=== PATIENT | female | born 1945 | race Caucasian/White ===

== ENCOUNTER → 2016-08-14 15:57 | Outpatient (CLI) | payer MEDICARE, OTHER ==
[2014-02-18 11:43] VITALS: BMI 26.9
[~2016-08-14 15:57] MED LIST: ATIVAN0.5 MG PO; BUMEX 1 MG TAB1 MG PO; HYDROCODONE-APA1 TAB PO; IRON PO; LITE COAT ASPI325 MG PO; NEURONTIN 300300 MG PO; PREVACID30 MG PO; ZETIA10 MG PO; ZOLOFT100 MG PO; ZYRTEC10 MG PO
== END | disposition home or self-care (01) ==
LOC: D.MAMMO 08:30
DX: N64.4 Mastodynia (principal)

== ENCOUNTER → 2017-02-17 09:32 | Outpatient (CLI) | payer MEDICARE, OTHER ==
[2014-02-18 11:43] VITALS: BMI 26.9
[~2017-02-17 09:32] MED LIST changes: +MUCINEX DM ER1 EAC1 PO; +SINGULAIR10 MG PO
== END | disposition home or self-care (01) ==
LOC: D.RT 09:32
DX: J44.9 Chronic obstructive pulmonary disease, unspecified (principal)

== ENCOUNTER 2017-05-01 15:06 | Inpatient (IN) | payer MEDICARE, OTHER ==
[2017-05-01] VITALS: BP 127/70
[~2017-05-01] VITALS: Ht 160 cm; Wt 77.8 kg
--- NOTE | ~2017-05-01 | CN ---
PATIENT NAME:MELA SCHULER MEDICAL RECORD: [id number] : 49 LOCATION:[id number] ADMIT DATE: 05/01/17 ACCOUNT: [id number] CONSULTING PHYSICIAN: BASILIO LEONARD MD REFERRING PHYSICIAN: SEDRICK ADAMSON MD DATE OF CONSULTATION: 05/01/2017 DIAGNOSES: 1. Atrial fibrillation with rapid ventricular response. 2. Shortness of breath, dyspnea on exertion. 3. Pneumonia. 4. Valvular heart disease, aortic valve replacement, mitral regurgitation. 5. Pulmonary hypertension. 6. Chronic obstructive pulmonary disease. 7. Systemic hypertension. HISTORY OF PRESENT ILLNESS: Mrs. Schuler presents with shortness of breath, dyspnea on exertion, found to have pneumonia. She is well, found to have a heart rate of 155. She does not have a history of atrial fibrillation. She does have COPD. She has history of hypertension for which she is on losartan. She is in atrial fibrillation with rapid response. PHYSICAL EXAMINATION: GENERAL APPEARANCE: Well-nourished, well-developed, appears stated age. Level of distress, comfortable. PSYCHIATRIC: Mental status, alert, normal affect. Orientation, oriented to time, place and person. EYES: Lids and conjunctiva, noninjected. No discharge, no pallor. ENT: Lips, teeth, gums, normal dentition. Oropharynx, no cyanosis, no pallor. NECK: Carotid arteries, bilateral normal upstroke, no bruits, no thrills. JUGULAR VEINS: No jugular venous pressure or distention. CERVICAL LYMPH NODES: Nontender, nonenlarged. THYROID: Not enlarged. Nontender. No nodules. LUNGS: Respiratory effort, unlabored. CHEST: Normal curvature. No thoracic deformity. No chest wall tenderness. Percussion, resonant. Auscultation, clear. No wheezes, no rales, no rhonchi. CARDIOVASCULAR: Irregularly irregular, tachycardic with atrial fibrillation. EXTREMITIES: No cyanosis, no edema. Peripheral pulses, full and equal in all extremities, except as noted. No bruits appreciated. ABDOMEN: Soft, nondistended. Normal aorta. No bruit. Nontender. No masses. Liver, nontender, no hepatomegaly. Spleen, nontender, no splenomegaly. MUSCULOSKELETAL: No joint tenderness. No joint swelling. No erythema. NEUROLOGICAL: Normal gait, normal strength, normal tone. SKIN: Warm and dry. OVERALL IMPRESSION: Atrial fibrillation with rapid response, not surprising in a patient with valvular heart disease, pneumonia, and chronic obstructive pulmonary disease. We will start her on sotalol 120 mg b.i.d., give her 1 dose of IV Cardizem. Hopefully, this will liberty the atrial fibrillation. TRANSINT:[id number] Voice Confirmation ID: [id number] DOCUMENT ID: [id number] CONSULT REPORT [id number] MELA SCHULER, BASILIO GALICIA at 1323 CC: [id number] DICTATION DATE: 05/01/17 1601 BUS DRIVER SUPERVISOR: 05/01/17 1616 DIS IN 05/04/17 [facility] [address] [place] [address]
[~2017-05-01 15:06] MED LIST changes: -MUCINEX DM ER1 EAC1 PO; -SINGULAIR10 MG PO
[2017-05-01] MEDS ORDERED: SINGULAIR10 MG PO (15:33)
[2017-05-01] MEDS ORDERED: MUCINEX DM ER1 EAC1 PO (15:34)
[2017-05-01 15:40] VITALS: BP 122/90; BMI 30.1
[2017-05-01 16:15] LABS: BASOPHILS 0.2 % (0-2); EOSINOPHILS 0.7 % (0-7); HEMATOCRIT 43.2 % (36.0-48.0); HEMOGLOBIN 13.3 g/dL (12-16); IMMATURE GRANULOCYTES 0.2 % (0-5); LYMPHOCYTES 8.8 % (15-50); MCH 30.9 pg (26.0-34.0); MCHC 30.8 g/dL (31.0-37.0); MCV 100.5 fL (80.0-100.0); MEAN PLATELET VOLUME 9.8 fL (7.4-10.4); MONOCYTES 8.1 % (2-11); PLATELET COUNT 166 10x3/uL (130-400); RDW 16.4 % (11.5-14.5); WBC 9.4 10x3/uL (4.8-10.8)
[2017-05-01 16:41] LABS: ALBUMIN 3.7 g/dL (3.4-5.0); ANION GAP 19.5 mmol/L (8-16); BILIRUBIN - TOTAL 0.7 mg/dL (0.2-1.3); CALCIUM 8.9 mg/dL (8.5-10.1); CARBON DIOXIDE 19.2 mmol/L (21.0-32.0); CREATININE - SERUM 1.5 mg/dL (0.6-1.3); POTASSIUM - SERUM 4.7 mmol/L (3.5-5.1); PROTEIN - SERUM 6.5 g/dL (6.4-8.2)
[2017-05-01 16:54] LABS: CKMB 1.8 U/L (0.0-3.6); CREATINE KINASE 67 UL (21-215)
[2017-05-01 17:00] LABS: TROPONIN-I 0.487 ng/mL (0.000-0.060)
[2017-05-01 20:00] VITALS: BP 110/59
[2017-05-01 23:08] LABS: CKMB 2.2 U/L (0.0-3.6); CREATINE KINASE 96 UL (21-215)
[2017-05-02] VITALS: BP 110/59
[2017-05-02 04:00] VITALS: BP 113/65
[2017-05-02 04:39] LABS: CKMB 2.3 U/L (0.0-3.6); CREATINE KINASE 70 UL (21-215)
[2017-05-02 04:53] LABS: TROPONIN-I 0.514 ng/mL (0.000-0.060)
[2017-05-02 07:55] VITALS: BP 103/62
[2017-05-02 11:43] LABS: ALBUMIN 3.4 g/dL (3.4-5.0); ANION GAP 19.9 mmol/L (8-16); BASOPHILS 0.2 % (0-2); BILIRUBIN - TOTAL 0.95 mg/dL (0.2-1.3); CALCIUM 8.7 mg/dL (8.5-10.1); CREATININE - SERUM 1.8 mg/dL (0.6-1.3); EOSINOPHILS 0.4 % (0-7); HEMATOCRIT 41.6 % (36.0-48.0); HEMOGLOBIN 12.8 g/dL (12-16); IMMATURE GRANULOCYTES 0.5 % (0-5); LYMPHOCYTES 4.9 % (15-50); MCH 31.1 pg (26.0-34.0); MCHC 30.8 g/dL (31.0-37.0); MEAN PLATELET VOLUME 10.2 fL (7.4-10.4); MONOCYTES 8.6 % (2-11); NEUTROPHILS 85.4 % (40-80); PLATELET COUNT 152 10x3/uL (130-400); POTASSIUM - SERUM 4.9 mmol/L (3.5-5.1); PROTEIN - SERUM 6.2 g/dL (6.4-8.2); RBC 4.12 10x6/uL (4.00-5.40); RDW 16.4 % (11.5-14.5); WBC 11.1 10x3/uL (4.8-10.8)
[2017-05-02 12:13] VITALS: BP 109/66
[2017-05-02 16:05] LABS: INR 1.55 (0.85-1.17); PROTIME 18.1 SECONDS (11.6-15.0)
[2017-05-02 16:30] VITALS: BP 102/59
[2017-05-02 18:43] LABS: APPEARANCE CLEAR (CLEAR); BILIRUBIN NEGATIVE (NEGATIVE); COLOR AMBER (YELLOW); GLUCOSE NEGATIVE (NEGATIVE); KETONE NEGATIVE (NEGATIVE); NITRITE NEGATIVE (NEGATIVE); PROTEIN 1+ mg/dL (NEGATIVE); SPECIFIC GRAVITY 1.025 (1.005-1.020); UROBILINOGEN NORMAL (NORMAL)
[2017-05-02 20:00] VITALS: BP 100/59
[2017-05-03] VITALS (35 sets, daily range): BP systolic 74–141; BP diastolic 35–116; Ht 160 cm; Wt 77.8 kg
[2017-05-03 04:57] LABS: BASOPHILS 0 % (0-2); EOSINOPHILS 0 % (0-7); HEMATOCRIT 42.2 % (36.0-48.0); HEMOGLOBIN 13.1 g/dL (12-16); IMMATURE GRANULOCYTES 0.4 % (0-5); LYMPHOCYTES 2.9 % (15-50); MCH 30.9 pg (26.0-34.0); MCV 99.5 fL (80.0-100.0); MEAN PLATELET VOLUME 9.9 fL (7.4-10.4); MONOCYTES 2.3 % (2-11); NEUTROPHILS 94.4 % (40-80); PLATELET COUNT 128 10x3/uL (130-400); RBC 4.24 10x6/uL (4.00-5.40); RDW 16.2 % (11.5-14.5)
[2017-05-03 05:03] LABS: WBC 8.2 10x3/uL (4.8-10.8)
[2017-05-03 05:31] LABS: ALBUMIN 2.8 g/dL (3.4-5.0); ANION GAP 19.2 mmol/L (8-16); BILIRUBIN - TOTAL 0.61 mg/dL (0.2-1.3); CALCIUM 8.5 mg/dL (8.5-10.1); CARBON DIOXIDE 18.8 mmol/L (21.0-32.0); CREATININE - SERUM 2.1 mg/dL (0.6-1.3); PROTEIN - SERUM 5.4 g/dL (6.4-8.2); THYROID STIMULATING HORMONE 1.32 uIU/mL (0.36-3.74)
[2017-05-03 16:46] LABS: ERYTHROCYTE SEDIMENTATION RATE 1 mm/hr (0-30)
[2017-05-03 17:15] LABS: BASOPHILS 0.2 % (0-2); EOSINOPHILS 0.2 % (0-7); HEMATOCRIT 48.4 % (36.0-48.0); IMMATURE GRANULOCYTES 3.7 % (0-5); MCH 31.6 pg (26.0-34.0); MEAN PLATELET VOLUME 10.4 fL (7.4-10.4); MONOCYTES 5.7 % (2-11); NEUTROPHILS 77.2 % (40-80); PLATELET COUNT 106 10x3/uL (130-400); RBC 4.75 10x6/uL (4.00-5.40); RDW 16.5 % (11.5-14.5)
[2017-05-03 17:26] LABS: MCV 101.9 fL (80.0-100.0); WBC 11.5 10x3/uL (4.8-10.8)
[2017-05-03 17:45] LABS: ALBUMIN 2.6 g/dL (3.4-5.0); BILIRUBIN - TOTAL 0.84 mg/dL (0.2-1.3); CALCIUM 7.7 mg/dL (8.5-10.1); CARBON DIOXIDE 17.1 mmol/L (21.0-32.0); CREATININE - SERUM 2.5 mg/dL (0.6-1.3); MAGNESIUM - SERUM 2.3 mg/dL (1.8-2.4); PHOSPHOROUS 8.4 mg/dL (2.5-4.9); PROTEIN - SERUM 4.9 g/dL (6.4-8.2)
[2017-05-03 17:46] LABS: ANION GAP 24.9 mmol/L (8-16)
[2017-05-03 17:49] LABS: CKMB 2.7 U/L (0.0-3.6); CREATINE KINASE 122 UL (21-215)
[2017-05-03 17:51] LABS: TROPONIN-I 0.447 ng/mL (0.000-0.060)
[2017-05-03 22:11] LABS: APPEARANCE CLOUDY (CLEAR); BILIRUBIN NEGATIVE (NEGATIVE); COLOR DK YELLOW (YELLOW); GLUCOSE NEGATIVE (NEGATIVE); KETONE NEGATIVE (NEGATIVE); NITRITE NEGATIVE (NEGATIVE); PROTEIN 3+ mg/dL (NEGATIVE); SPECIFIC GRAVITY 1.015 (1.005-1.020); UROBILINOGEN NORMAL (NORMAL)
[2017-05-03 22:15] LABS: BACTERIA MODERATE /hpf (NONE SEEN); EPITHELIAL CELLS 0-5 /hpf (0-5); MUCUS <1+ /lpf (NONE SEEN); RED CELLS - URINE >50 /hpf (0-5)
[2017-05-03 22:18] LABS: GRANULAR CAST OCC /lpf (NONE SEEN); HYALINE CAST RARE /lpf (NONE SEEN)
[2017-05-03 22:20] LABS: PRO/CRE RATIO URINE 20.3 mg/g; PROTEIN - URINE 487.1 mg/dL (0.0-11.9)
[2017-05-04] VITALS (59 sets, daily range): BP systolic 54–206; BP diastolic 22–179
[2017-05-04 00:24] LABS: CKMB 7.7 U/L (0.0-3.6); CREATINE KINASE 153 UL (21-215)
[2017-05-04 00:26] LABS: TROPONIN-I 1.855 ng/mL (0.000-0.060)
[2017-05-04 05:53] LABS: BASOPHILS 0 % (0-2); EOSINOPHILS 0 % (0-7); HEMATOCRIT 51.2 % (36.0-48.0); HEMOGLOBIN 16.4 g/dL (12-16); IMMATURE GRANULOCYTES 0.5 % (0-5); LYMPHOCYTES 3.7 % (15-50); MCH 31.6 pg (26.0-34.0); MONOCYTES 5.6 % (2-11); NEUTROPHILS 90.2 % (40-80); PLATELET COUNT 121 10x3/uL (130-400); RBC 5.19 10x6/uL (4.00-5.40); RDW 16.1 % (11.5-14.5)
[2017-05-04 06:06] LABS: MCV 98.7 fL (80.0-100.0); WBC 19.8 10x3/uL (4.8-10.8)
[2017-05-04 07:04] LABS: APTT 35.4 SECONDS (22.8-39.4); INR 2.24 (0.85-1.17); PROTIME 24.2 SECONDS (11.6-15.0)
[2017-05-04 07:52] LABS: ALBUMIN 2.8 g/dL (3.4-5.0); ALKALINE PHOSPHATASE 192 U/L (46-116); BILIRUBIN - TOTAL 1.35 mg/dL (0.2-1.3); CALCIUM 8.5 mg/dL (8.5-10.1); CARBON DIOXIDE 18.7 mmol/L (21.0-32.0); CHLORIDE - SERUM 108 mmol/L (98-107); CKMB 2.7 U/L (0.0-3.6); CREATINE KINASE 167 UL (21-215); GLUCOSE 101 mg/dL (74-106); PROTEIN - SERUM 5.3 g/dL (6.4-8.2); SODIUM 143 mmol/L (136-145)
[2017-05-04 07:55] LABS: CALC OSMOLALITY 302 mosm/kg (275-300); CREATININE - SERUM 3.2 mg/dL (0.6-1.3); UREA NITROGEN 64 mg/dL (7-18); eGFR NON AFRICAN AMERICAN 15 mL/min (90-120)
[2017-05-04 07:56] LABS: ALT (SGPT) 1904 U/L (10-68); POTASSIUM - SERUM 6.2 mmol/L (3.5-5.1)
[2017-05-04 08:16] LABS: KETONE - SERUM NEGATIVE (NEGATIVE)
[2017-05-04 11:41] LABS: APPEARANCE CLOUDY (CLEAR); BACTERIA MODERATE /hpf (NONE SEEN); BILIRUBIN NEGATIVE (NEGATIVE); COLOR BROWN (YELLOW); EPITHELIAL CELLS 0-5 /hpf (0-5); GLUCOSE NEGATIVE (NEGATIVE); GRANULAR CAST 0-5 /lpf (NONE SEEN); KETONE NEGATIVE (NEGATIVE); MUCUS <1+ /lpf (NONE SEEN); NITRITE NEGATIVE (NEGATIVE); PROTEIN 2+ mg/dL (NEGATIVE); RED CELLS - URINE 25-50 /hpf (0-5); SPECIFIC GRAVITY 1.015 (1.005-1.020); WHITE CELLS - URINE 0-5 /hpf (0-5)
[2017-05-06 13:15] LABS: UPE RAND - ALBUMIN 62.6 % (()); UPE RAND - ALPHA 1 GLOBULIN 5.4 % (()); UPE RAND - ALPHA 2 GLOBULIN 5.1 % (()); UPE RAND - BETA GLOBULIN 15.2 % (()); UPE RAND - GAMMA GLOBULIN 11.6 % (())
[2017-05-07 06:12] LABS: SPE - A/G RATIO 1.3 (0.7-1.7); SPE - ALBUMIN 2.8 g/dL (2.9-4.4); SPE - ALPHA-1 GLOBULIN 0.2 g/dL (0.0-0.4); SPE - ALPHA-2 GLOBULIN 0.6 g/dL (0.4-1.0); SPE - BETA GLOBULIN 0.7 g/dL (0.7-1.3); SPE - GAMMA GLOBULIN 0.5 g/dL (0.4-1.8); SPE - M-SPIKE Not Observed g/dL (Not Observed); SPE - TOTAL PROTEIN 4.9 g/dL (6.0-8.5)
== END 2017-05-04 18:24 | DRG 871 ==
LOC: D.MS 15:06 → D.CVICU 05-03 16:54
PROVIDERS: Emergency Medicine; Family Medicine; Internal Medicine Nephrology; Internal Medicine Pulmonary Disease; Specialist
PROC: 5A09357 Assistance with Respiratory Ventilation, Less than 24 Consecutive Hours, Continuous Positive Airway Pressure (ICD-10-PCS; 2017-05-02)
PROC: 0T9B70Z Drainage of Bladder with Drainage Device, Via Natural or Artificial Opening (ICD-10-PCS; 2017-05-02)
PROC: 0BH17EZ Insertion of Endotracheal Airway into Trachea, Via Natural or Artificial Opening (ICD-10-PCS; principal; 2017-05-03)
PROC: 5A1935Z Respiratory Ventilation, Less than 24 Consecutive Hours (ICD-10-PCS; 2017-05-03)
PROC: 5A12012 Performance of Cardiac Output, Single, Manual (ICD-10-PCS; 2017-05-03)
PROC: 05HN33Z Insertion of Infusion Device into Left Internal Jugular Vein, Percutaneous Approach (ICD-10-PCS; 2017-05-03)
PROC: 0BH17EZ Insertion of Endotracheal Airway into Trachea, Via Natural or Artificial Opening (ICD-10-PCS; 2017-05-04)
PROC: 5A1D70Z Performance of Urinary Filtration, Intermittent, Less than 6 Hours Per Day (ICD-10-PCS; 2017-05-04)
DX: A41.9 Sepsis, unspecified organism (principal); J18.9 Pneumonia, unspecified organism; K72.00 Acute and subacute hepatic failure without coma; J96.90 Respiratory failure, unspecified, unspecified whether with hypoxia or hypercapnia; J44.1 Chronic obstructive pulmonary disease with (acute) exacerbation; J44.0 Chronic obstructive pulmonary disease with (acute) lower respiratory infection; B37.0 Candidal stomatitis; J90 Pleural effusion, not elsewhere classified; N17.9 Acute kidney failure, unspecified; L76.32 Postprocedural hematoma of skin and subcutaneous tissue following other procedure; I27.20 Pulmonary hypertension, unspecified; E86.0 Dehydration; R53.1 Weakness; I48.0 Paroxysmal atrial fibrillation; I34.0 Nonrheumatic mitral (valve) insufficiency; I12.9 Hypertensive chronic kidney disease with stage 1 through stage 4 chronic kidney disease, or unspecified chronic kidney disease; N18.3 Chronic kidney disease, stage 3 (moderate); R00.0 Tachycardia, unspecified; E87.5 Hyperkalemia; Z66 Do not resuscitate; Y83.8 Other surgical procedures as the cause of abnormal reaction of the patient, or of later complication, without mention of misadventure at the time of the procedure; Y92.239 Unspecified place in hospital as the place of occurrence of the external cause; I95.9 Hypotension, unspecified; Z95.2 Presence of prosthetic heart valve; Z85.118 Personal history of other malignant neoplasm of bronchus and lung; Z85.41 Personal history of malignant neoplasm of cervix uteri; Z78.1 Physical restraint status; Z87.891 Personal history of nicotine dependence